=== PATIENT | male | born 1985 | race Caucasian/White ===

== ENCOUNTER 2016-05-02 11:03 | Emergency (ER) | payer SELFPAY ==
[~2016-05-02] VITALS: Ht 180.3 cm; Wt 65.7 kg
[2016-05-02] MEDS ORDERED: TRAMADOL HCL50 MG PO (13:27)
[2016-05-02] MEDS ORDERED: NAPROSYN500 MG PO (13:27)
[2016-05-02 13:43] VITALS: BP 146/69
== END 2016-05-02 13:44 | disposition home or self-care (01) ==
LOC: EXP 11:03 → EME 11:03 → EXP 13:44
DX: M70.41 Prepatellar bursitis, right knee (principal); S89.81XA Other specified injuries of right lower leg, initial encounter; X50.3XXA Overexertion from repetitive movements, initial encounter; Y92.69 Other specified industrial and construction area as the place of occurrence of the external cause; Y99.0 Civilian activity done for income or pay; Z87.891 Personal history of nicotine dependence; F12.10 Cannabis abuse, uncomplicated
CPT/HCPCS: 73564; 99281; 99284